=== PATIENT | female | born 1995 | race Caucasian/White ===

== ENCOUNTER 2016-08-03 01:00 | Emergency (ER) | payer OTHER ==
[~2016-08-03 01:00] MED LIST: PROTONIX40 MG PO; ZOFRAN4 MG PO
== END 2016-08-03 06:20 | disposition home or self-care (01) ==
LOC: ER1 01:00
DX: S29.012A Strain of muscle and tendon of back wall of thorax, initial encounter (principal); S39.012A Strain of muscle, fascia and tendon of lower back, initial encounter; F17.210 Nicotine dependence, cigarettes, uncomplicated; Z88.6 Allergy status to analgesic agent; V43.52XA Car driver injured in collision with other type car in traffic accident, initial encounter; Y93.89 Activity, other specified; Y92.410 Unspecified street and highway as the place of occurrence of the external cause
CPT/HCPCS: 72128; 72131; 84703; 99284

== ENCOUNTER 2021-02-06 17:37 | Emergency (ER) | payer OTHER ==
[~2021-02-06 17:37] MED LIST changes: +COLACE100 MG PO; +FERROUS SULFAT325 M2 PO; +FLEXERIL 10 MG10 MG PO; +IBUPROFEN600 MG PO; +KEFLEX500 MG PO; +MACRODANTIN100 MG PO; +PERCOCET 10-321 EACH PO; +TYLENOL 325MG325 MG PO
[2021-02-06 18:20] LABS: HEMOGLOBIN 12.1 gm/dl (12.3-15.3); RED BLOOD COUNT 4.13 M/UL (4.00-5.10); WHITE BLOOD COUNT 8.1 K/UL (4.5-11.0)
[2021-02-06 18:42] LABS: BUN/CREATININE RATIO 11 (0-10)
== END 2021-02-06 20:19 | disposition home or self-care (01) ==
LOC: ER1 17:37
PROVIDERS: Emergency Medicine
DX: S30.0XXA Contusion of lower back and pelvis, initial encounter (principal); S10.93XA Contusion of unspecified part of neck, initial encounter; S30.1XXA Contusion of abdominal wall, initial encounter; S20.229A Contusion of unspecified back wall of thorax, initial encounter; V49.50XA Passenger injured in collision with unspecified motor vehicles in traffic accident, initial encounter; Z88.8 Allergy status to other drugs, medicaments and biological substances; Y92.410 Unspecified street and highway as the place of occurrence of the external cause
CPT/HCPCS: 70450; 71045; 71260; 72125; 80053; 80307; 81001; 84703; 85025; 99284; Q9967

== ENCOUNTER → 2021-05-05 | Outpatient (CLI) | payer OTHER ==
[~2021-05-05] MED LIST changes: +AMITRIPTYLINE H50 MG PO; +WELLBUTRIN XL150 MG PO; +XANAX1 MG PO
[2021-05-05 10:49] LABS: HEMOGLOBIN 13.5 gm/dl (12.3-15.3); RED BLOOD COUNT 4.42 M/UL (4.00-5.10); WHITE BLOOD COUNT 7.6 K/UL (4.5-11.0)
== END ==
LOC: OPSV2 09:00
PROVIDERS: Obstetrics & Gynecology
DX: Z01.812 Encounter for preprocedural laboratory examination (principal); N80.9 Endometriosis, unspecified
CPT/HCPCS: 36415; 81001; 85025

== ENCOUNTER → 2021-05-13 | Day surgery (SDC) | payer OTHER ==
[~2021-05-13] VITALS: Ht 154.9 cm; Wt 50.3 kg
[~2021-05-13] MED LIST changes: +TYLENOL EXTRA500 MG PO
== END | disposition home or self-care (01) ==
LOC: OR 05:57
DX: R10.2 Pelvic and perineal pain (principal); K40.90 Unilateral inguinal hernia, without obstruction or gangrene, not specified as recurrent; N80.9 Endometriosis, unspecified; Z88.6 Allergy status to analgesic agent; F17.210 Nicotine dependence, cigarettes, uncomplicated; Z20.822 Contact with and (suspected) exposure to COVID-19
CPT/HCPCS: 84703; J1100; J2001; J2250; J2405; J2704; J2710; J2795; J3010; J7120

== ENCOUNTER → 2021-12-26 | Outpatient (CLI) | payer OTHER | LOC: KOH-I 09:34 | DX: M54.50 Low back pain, unspecified (principal) | CPT/HCPCS: 72100 ==